=== PATIENT | female | born 1950 | race Two or more races ===

== ENCOUNTER 2018-04-18 08:36 | Outpatient (CLI) | payer OTHER ==
[~2018-04-18 08:36] MED LIST: ASA81 MG; ATENOLOL100 MG; CAPOTEN50 MG; CATAPRES0.2 MG; FLEXERIL10 MG PO; GABAPENTIN300 MG; HIDRALAZINE; HUMALOG100 U/M1; HUMULIN R500 U/ML; HYDROCHLOROTHIA25 MG; KETO10TA2 PO; LANTUS100 U/ML; LASIX40 MG PO; METFORMIN HCL1000 MG; MOBIC15 MG PO; NIFEDIPINE ER90 MG; ORPH100T PO; PRAVASTATIN SOD40 MG; VASOTEC5 MG
== END 2018-04-18 08:44 | disposition home or self-care (01) ==
LOC: TOM 08:36
DX: K63.5 Polyp of colon (principal); K57.31 Diverticulosis of large intestine without perforation or abscess with bleeding; R10.12 Left upper quadrant pain

== ENCOUNTER 2018-07-10 07:56 | Outpatient (CLI) | payer OTHER | END 2018-07-10 08:02 | disposition home or self-care (01) | LOC: SONOGRAMA 07:56 | DX: E04.2 Nontoxic multinodular goiter (principal) ==

== ENCOUNTER 2022-02-10 09:07 | Outpatient (CLI) | payer OTHER | END 2022-02-10 09:09 | disposition home or self-care (01) | LOC: SONOGRAMA 09:07 | PROVIDERS: ATTEND Pathology Anatomic Pathology & Clinical Pathology | DX: E04.1 Nontoxic single thyroid nodule (principal) ==